=== PATIENT | female | born 2005 | race Two or more races ===

== ENCOUNTER 2024-09-04 14:06 | Emergency (ER) | payer OTHER ==
[~2024-09-04] VITALS: Ht 165.1 cm; Wt 86.2 kg
[2024-09-04] MEDS ORDERED: SYNTHROID200 MCG (14:28)
[2024-09-04] MEDS ORDERED: CETIRIZINE HCL 5 MG/5 ML ML PO ONE (16:00)
[2024-09-04] MEDS ORDERED: CETIRIZINE HCL 5MG/5ML BLIST.PACK PO ONE (16:07)
[2024-09-04 16:29] LABS: HEMATOCRIT 38.6 % (36.0-45.00); HEMOGLOBIN 12.9 g/dL (12.0-15.00); MEAN CELL VOLUME 90.7 fL (80.00-100.00); MEAN CORPUSCULAR HEMOGLOBIN 30.3 pg (27.00-32.0); MEAN CORPUSCULAR HGB CONC 33.4 g/dl (32.0-36.0); PLATELET COUNT 232 K/uL (150-450); RED BLOOD COUNT 4.25 M/uL (4.00-6.00); RED CELL DISTRIBUTION WIDTH 12.6 % (11.5-14.5)
[2024-09-04] MEDS ORDERED: OSELTAMIVIR PHOSPHATE 75 MG CAPSULE PO ONE ×2 (18:15→18:47)
[2024-09-04] MEDS ORDERED: OSEL75CA PO (18:17)
[2024-09-04] MEDS ORDERED: ZYRTEC10 MG PO (18:17)
== END 2024-09-04 19:35 ==
LOC: ER 14:08
PROVIDERS: General Practice
DX: J10.1 Influenza due to other identified influenza virus with other respiratory manifestations (principal); E03.8 Other specified hypothyroidism; Z20.822 Contact with and (suspected) exposure to COVID-19

== ENCOUNTER 2024-09-26 13:00 | Inpatient (IN) | payer OTHER ==
[~2024-09-26] VITALS: Ht 165.1 cm; Wt 95.3 kg
[~2024-09-26 13:00] MED LIST: OSEL75CA PO; SYNTHROID200 MCG; ZYRTEC10 MG PO
[2024-10-07] VITALS (10 sets, daily range): BP systolic 89–165; BP diastolic 65–88
[2024-10-07] MEDS ORDERED: PRENATAL TABLE1 EAC1 PO (04:35)
[2024-10-07] MEDS ORDERED: AMPICILLIN SODIUM 2,000 MG VIAL IV STA (04:43)
[2024-10-07] MEDS ORDERED: RINGERS SOLUTION,LACTATED 1,000 ML IV SCH (04:45)
[2024-10-07 05:21] LABS: PH,URINE 6.5 (5.0-8.0); URINE APPEARANCE Clear; URINE BILIRRUBIN Negative (NEGATIVE); URINE BLOOD Negative; URINE COLOR Yellow; URINE GLUCOSE Negative (NEGATIVE); URINE KETONE Negative (NEGATIVE); URINE LEUKOCYTE Negative; URINE NITRATE Negative; URINE PROTEIN Negative (NEGATIVE); URINE UROBILINOGEN 0.2 E.U./dl
[2024-10-07 05:23] LABS: URINE BACTERIA 13.4 uL (0.0-1933); URINE EPITHELIAL CELLS 10.4 uL (0.0-38.8); URINE RBC 5.8 uL (0.0-20.8); URINE WBC 18.5 uL (0.0-23.2)
[2024-10-07 05:25] LABS: URINE CAST 0.29 uL (0.0-1.40)
[2024-10-07 05:29] LABS: HEMATOCRIT 38.6 % (36.0-45.00); HEMOGLOBIN 12.9 g/dL (12.0-15.00); MEAN CELL VOLUME 90.7 fL (80.00-100.00); MEAN CORPUSCULAR HEMOGLOBIN 30.4 pg (27.00-32.0); MEAN CORPUSCULAR HGB CONC 33.5 g/dl (32.0-36.0); PLATELET COUNT 233 K/uL (150-450); RED BLOOD COUNT 4.26 M/uL (4.00-6.00); RED CELL DISTRIBUTION WIDTH 13.5 % (11.5-14.5)
[2024-10-07 05:46] LABS: INR 0.94; PARTIAL THROMBOPLASTIN TIME 27.8 SECONDS (22.0-34.0); PROTHROMBIN TIME 10.3 SECONDS (9.0-11.5)
[2024-10-07 05:56] LABS: ALBUMIN 2.8 gm/dL (3.4-5.0); BILIRUBIN TOTAL 0.36 mg/dL (0.3-1.2); CALCIUM 9.4 mg/dL (8.5-10.1); CREATININE SERUM 0.5 mg/dL (0.55-1.02); GFR 157.29; GLOBULINA 3.6 G/DL (2.4-3.5); POTASSIUM 4.26 mEq/L (3.5-5.1); TOTAL PROTEIN 6.4 gm/dL (6.4-8.2)
[2024-10-07] MEDS ORDERED: OXYTOCIN 20 UNITS/500ML RL PIGGYBAG IV ONE (06:15)
[2024-10-07] MEDS ORDERED: OXYTOCIN 500 ML IV SCH (06:30)
[2024-10-07] MEDS ORDERED: AMPICILLIN SODIUM 1,000 MG VIAL IV SCH (09:00)
[2024-10-07] MEDS ORDERED: PROMETHAZINE HCL 25 MG/ML AMPUL ONE (09:03)
[2024-10-07] MEDS ORDERED: PROMETHAZINE HCL 25 MG/ML AMPUL IV ONE (09:30)
[2024-10-07] MEDS ORDERED: MEPERIDINE HCL/PF 25 MG/ML VIAL IV ONE (09:30)
[2024-10-07] MEDS ORDERED: ERYTHROMYCIN BASE OPHT 1GM EACH TUBE OP ONE ×2 (11:47→13:00)
[2024-10-07] MEDS ORDERED: OXYTOCIN 20 UNITS/1000ML RL PIGGYBAG IV ONE ×2 (11:47→13:00)
[2024-10-07] MEDS ORDERED: CHLORHEXIDINE GLUCONATE 120 ML BOTTLE TOP ONE ×2 (11:48→13:00)
[2024-10-07] MEDS ORDERED: LIDOCAINE HCL 1% 10ML VIAL ONE (11:48)
[2024-10-07] MEDS ORDERED: OxyCODONE HCL/APAP UD (PERCOCET) PO PRN (13:00)
[2024-10-07] MEDS ORDERED: ACETAMINOPHEN 325 MG TABLET PO PRN (13:00)
[2024-10-07] MEDS ORDERED: BENZOCAINE/MENTHOL 90 ML BOTTLE TOP SCH (17:00)
[2024-10-07] MEDS ORDERED: HYDROCORTISONE 2.5% 30 GM TUBE RECTAL SCH (17:00)
[2024-10-08 00:23] VITALS: BP 100/68
[2024-10-08 00:38] LABS: HEMATOCRIT 33.9 % (36.0-45.00); HEMOGLOBIN 11.4 g/dL (12.0-15.00); MEAN CORPUSCULAR HEMOGLOBIN 30.3 pg (27.00-32.0); MEAN CORPUSCULAR HGB CONC 33.7 g/dl (32.0-36.0); PLATELET COUNT 229 K/uL (150-450); RED BLOOD COUNT 3.76 M/uL (4.00-6.00); RED CELL DISTRIBUTION WIDTH 13.7 % (11.5-14.5)
[2024-10-08 08:00] VITALS: BP 127/76
[2024-10-08 16:00] VITALS: BP 128/80
[2024-10-09 00:27] VITALS: BP 147/100
[2024-10-09 05:10] VITALS: BP 129/83
[2024-10-09 08:00] VITALS: BP 129/79
== END 2024-10-09 14:16 | disposition home or self-care (01) | DRG 807 ==
LOC: LDR 10-07 04:34 → OB/GYN 10-07 14:16
PROVIDERS: ADMIT Specialist; ATTEND Specialist
PROC: 10E0XZZ Delivery of Products of Conception, External Approach (ICD-10-PCS; principal; 2024-10-07)
PROC: 4A1HXCZ Monitoring of Products of Conception, Cardiac Rate, External Approach (ICD-10-PCS; 2024-10-07)
DX: O99.824 Streptococcus B carrier state complicating childbirth (principal); Z37.0 Single live birth; Z3A.39 39 weeks gestation of pregnancy